=== PATIENT | male | born 1955 | race Hispanic/Latino ===

== ENCOUNTER → 2020-06-16 10:13 | Outpatient (CLI) | payer OTHER, SELFPAY ==
--- NOTE | ~2020-06-16 | XR_ITS ---
EXAMINATION: XR chest 2V EXAM DATE: 06/16/2020 10:33 INDICATION: R09.89 - Other specified symptoms and signs involving the ci. TECHNIQUE: Frontal and lateral projections of the chest obtained and reviewed. Comparison is made to prior examination from 02/19/2007. FINDINGS: The lungs are clear. There are no pleural effusions. The cardiomediastinal silhouette is within normal limits. There is no pneumothorax suspected. The bones and soft tissues are unremarkab le. IMPRESSION: No acute cardiopulmonary findings. Reviewed, dictated and finalized at location B. LEADER/CONTROL ROOM OPERATOR
== END ==
PROVIDERS: PCP Family Medicine; Visit Provider Family Medicine
DX: R09.89 Other specified symptoms and signs involving the circulatory and respiratory systems (principal)
CPT/HCPCS: 71046

== ENCOUNTER → 2021-07-12 09:21 | Outpatient (CLI) | payer OTHER, SELFPAY ==
--- NOTE | ~2021-07-12 | XR_ITS ---
XR chest 2V DATE: 07/12/2021 09:37 INDICATION: Smoker. Other specified symptoms and signs involving the ci TECHNIQUE: 2 views COMPARISON: June 16, 2020 2 view chest FINDINGS: Normal heart size. Mild aortic unfolding. No hilar or mediastinal enlargement. There is mild atelectasis at the left lung base. The lungs are otherwise clear. No pleural effusion o r pulmonary vascular congestion or pneumothorax. 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
== END ==
PROVIDERS: PCP Family Medicine; Visit Provider Family Medicine
DX: R09.89 Other specified symptoms and signs involving the circulatory and respiratory systems (principal); J98.11 Atelectasis
CPT/HCPCS: 71046

== ENCOUNTER 2021-08-01 00:40 | Day surgery (SDC) | payer OTHER, SELFPAY ==
[2021-07-24 10:59] VITALS: BMI 28.8
--- NOTE | 2021-07-31 17:31 | WPDGICN ---
Assessment and Plan Assessment and plan (1) Epigastric abdominal pain: Code(s): R10.13 - Epigastric pain Status: Acute Assessment and Plan: EGD with possible biopsy or dilatation or cautery. (2) Screen for colon cancer: Code(s): Z12.11 - Encounter for screening for malignant neoplasm of colon Status: Acute Assessment and Plan: Colonoscopy with possible biopsy or polypectomy or cautery or injection of substances. GI Consult Note Consult date/time: 07/31/21 17:31 HPI: Fazal Ruiz is a 65 year old male who has been losing weight. he knows that he is overweight but he has not been attempting to lose weight at this time He also has epigastric pain. pain is constant has been present for few months. He does use anti-inflammatory medications such as ibuprofen and Aleve quite regularly because of his sore back. As far as he knows he has not had an ulcer in the past. He is due for colon cancer screening. If he strains having a bowel movement he may see some red blood Review of Systems Review of Systems: All systems reviewed & are unremarkable except as noted in HPI and below PMFSH Past Medical History Medical History Abnormal lung sounds BMI 28.0-28.9,adult BMI greater than 30 Chronic GERD Dermatitis Epigastric abdominal pain Essential hypertension, benign History of peptic ulcer Iron deficiency anemia Other hyperlipidemia Respiratory crackles at both lung bases Screen for colon cancer Screen for colon cancer Tobacco abuse Type 2 diabetes mellitus Vitamin D deficiency, unspecified Surgical History Surgical History (Updated 08/01/21 @ 12:03 by Pedro Lee MD) History of carpal tunnel surgery History of cholecystectomy Social History Social History Smoking packs per day: 0.5 Smoking cigarettes per day: 10.0 Years smoked: 30 Smoking pack-years: 15.00 Smoking status: Current every day smoker Tobacco type: cigarettes Alcohol intake: never Substance use: never Substance use type: does not use Living arrangements: with family Spiritual care concerns: No Meds Home Medications and Allergies Home Medications Medication Instructions Recorded Confirmed Type hydrocortisone acetate 25 mg 25 mg RECTAL BID #12 ea 02/07/21 07/24/21 Rx rectal suppository ferrous sulfate 325 mg (65 mg 325 mg PO DAILY 03/08/21 07/24/21 History iron) tablet dapagliflozin 10 mg tablet See Rx Instructions .ROUTE 03/12/21 07/24/21 Rx .COMPLEX #90 tablet metformin 500 mg tablet,extended See Rx Instructions .ROUTE 04/08/21 07/24/21 Rx release 24 hr .COMPLEX #120 tablet metoprolol tartrate 100 mg tablet 100 mg PO BID #180 tablet 05/16/21 07/24/21 Rx rosuvastatin 40 mg tablet 40 mg PO DAILY #30 tablet 07/02/21 07/24/21 Rx blood sugar diagnostic #100 each 07/12/21 07/12/21 Rx omeprazole 40 mg capsule,delayed 40 mg PO DAILY #90 cap 07/12/21 07/24/21 Rx release Allergies Allergy/AdvReac Type Severity Reaction Status Date / Time No Known Allergies Allergy Unknown Verified 08/01/21 10:57 Exam Const: General: alert Orientation/consciousness: patient oriented x3 Resp: Auscultation: clear to auscultation bilaterally Cardio: Rhythm: regular rhythm GI: GI Palp: Yes Soft to palpation and No Tenderness to palpation present (GI) Neuro: General: patient oriented x3
[2021-08-01 10:58] VITALS: BMI 27.8
[2021-08-01 11:01] VITALS: BP 147/94; PULSE 70; RESP 20; TEMP 36.2; O2SAT 99
[2021-08-01] MEDS: LACTATED RINGERS 1,000 ML 150 ML IV CONT (11:11)
[2021-08-01 11:13] LABS: Glucose Point of Care 151 mg/dl (65-105)
--- NOTE | 2021-08-01 11:59 | WPDANESEPPF ---
Anes - Initial Pre Proc Eval Procedure: Operation Date: 08/01/21 12:30 Proposed Procedures p Esophagogastroduodenoscopy & Colonoscopy - Jonah Preciado MD Date/Time: 08/01/21 11:59 Surgeon: Jonah Preciado MD Pre Op Diagnosis: epigastric pain, GERD, weight loss Patient Data Age: 65 Gender: M Height: 1.78 m Weight: 88.1 kg Last Vital Signs Temp 36.2 C L 08/01/21 11:01 Pulse 70 08/01/21 11:01 Resp 20 08/01/21 11:01 BP 147/94 H 08/01/21 11:01 Pulse Ox 99 08/01/21 11:01 Allergies Allergy/AdvReac Type Severity Reaction Status Date / Time No Known Allergies Allergy Unknown Verified 08/01/21 10:57 Home Medications Medication Instructions Recorded Confirmed Type hydrocortisone acetate 25 mg 25 mg RECTAL BID #12 ea 02/07/21 07/24/21 Rx rectal suppository ferrous sulfate 325 mg (65 mg 325 mg PO DAILY 03/08/21 07/24/21 History iron) tablet dapagliflozin 10 mg tablet See Rx Instructions .ROUTE 03/12/21 07/24/21 Rx .COMPLEX #90 tablet metformin 500 mg tablet,extended See Rx Instructions .ROUTE 04/08/21 07/24/21 Rx release 24 hr .COMPLEX #120 tablet metoprolol tartrate 100 mg tablet 100 mg PO BID #180 tablet 05/16/21 07/24/21 Rx rosuvastatin 40 mg tablet 40 mg PO DAILY #30 tablet 07/02/21 07/24/21 Rx blood sugar diagnostic #100 each 07/12/21 07/12/21 Rx omeprazole 40 mg capsule,delayed 40 mg PO DAILY #90 cap 07/12/21 07/24/21 Rx release Laboratory Tests 08/01/21 11:08 POC Capillary Glucose 151 mg/dl H mg/dl (65-105) Patient hx anesthesia problems: none Family hx anesthesia problems: none Results Review: All pre-operative results and documents have been reviewed as part of the pre-operative evaluation. [facility] Past Medical History Medical History Abnormal lung sounds BMI 28.0-28.9,adult BMI greater than 30 Chronic GERD Dermatitis Epigastric abdominal pain Essential hypertension, benign History of peptic ulcer Iron deficiency anemia Other hyperlipidemia Respiratory crackles at both lung bases Screen for colon cancer Screen for colon cancer Tobacco abuse Type 2 diabetes mellitus Vitamin D deficiency, unspecified Surgical History Surgical History (Updated 08/01/21 @ 12:03 by Pedro Lee MD) History of carpal tunnel surgery History of cholecystectomy Social History Social History Smoking packs per day: 0.5 Smoking cigarettes per day: 10.0 Years smoked: 30 Smoking pack-years: 15.00 Smoking status: Current every day smoker Tobacco type: cigarettes Alcohol intake: never Substance use: never Substance use type: does not use Living arrangements: with family Spiritual care concerns: No Anes - Eval Final PreProcedure Day of Procedure 08/01/21 11:59 Patient weight: overweight Heart: regular rate and rhythm Lungs: clear to auscultation Airway: Mallampati scale class II Neurological: alert and oriented Last oral intake: >/= 8 hours ASA classification: III Emergent: no Anesthetic plan: proceed Anesthesia type and monitoring: general GIVS and standard monitoring Results Review: All pre-operative results and documents have been reviewed as part of the pre-operative evaluation. Informed Consent: The patient's anesthetic plan and its attendant risks and benefits were discussed with the patient/family/POA. Questions were solicited and answers provided to the satisfaction of the patient/family/POA.
--- NOTE | 2021-08-01 12:18 | SUR.OPER ---
EGD ENDED 1211, COLONOSCOPY STARTED 1220
[2021-08-01] MEDS: SIMETHICONE ORAL SUSPENSION 20 MG/0.3 ML 30 ML BOTTLE 0.6 ML IRRIGATION (12:25)
[2021-08-01 12:30] VITALS: BP 95/63; PULSE 63; RESP 17; O2SAT 95
[2021-08-01 12:40] VITALS: BP 115/74; PULSE 66; RESP 20; O2SAT 96
[2021-08-01 12:50] VITALS: BP 141/91; PULSE 64; RESP 20; O2SAT 99
== END 2021-08-01 13:16 | disposition home or self-care (01) ==
PROVIDERS: PCP Family Medicine; Visit Provider Internal Medicine Gastroenterology
PROC: 0DJ08ZZ Inspection of Upper Intestinal Tract, Via Natural or Artificial Opening Endoscopic (ICD-10-PCS; CPT 43235; principal; 2021-08-01 12:30)
DX: Z12.11 Encounter for screening for malignant neoplasm of colon (principal); K64.8 Other hemorrhoids; K57.30 Diverticulosis of large intestine without perforation or abscess without bleeding; K21.9 Gastro-esophageal reflux disease without esophagitis; K29.70 Gastritis, unspecified, without bleeding; R63.4 Abnormal weight loss; I10 Essential (primary) hypertension; E78.49 Other hyperlipidemia; E11.9 Type 2 diabetes mellitus without complications; E55.9 Vitamin D deficiency, unspecified; D50.9 Iron deficiency anemia, unspecified; Z87.11 Personal history of peptic ulcer disease; F17.210 Nicotine dependence, cigarettes, uncomplicated; Z79.84 Long term (current) use of oral hypoglycemic drugs
CPT/HCPCS: 45378; 43239; 82948; 87081; J2704; J7120

== ENCOUNTER 2024-10-02 11:29 | Outpatient (CLI) | payer OTHER, SELFPAY ==
--- NOTE | ~2024-10-02 | XR_ITS ---
XR knee RT min 4V 10/02/2024 11:44 Indication: Right knee pain Procedure: 4 views right knee Comparison: No prior studies for comparison. Findings: There is mild patellofemoral compartment osteoarthritis. There is joint space narrowing of the medial compartment. No fracture or traumatic malalignment is identified. No joint effusion. Impression: 1: Mild polyarticular osteoarthritis of the right knee. Reviewed, dictated and finalized at location A. Impression: 1: Mild polyarticular osteoarthritis of the right knee.
== END 2024-10-02 11:30 | disposition home or self-care (01) ==
LOC: MICIMG 11:30
PROVIDERS: PCP Family Medicine; Visit Provider Family Medicine
DX: M17.11 Unilateral primary osteoarthritis, right knee (principal)
CPT/HCPCS: 73564

== ENCOUNTER 2025-04-21 14:13 | Outpatient (CLI) | payer OTHER, SELFPAY ==
--- NOTE | ~2025-04-21 | XR_ITS ---
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 Findings: No acute fracture or malalignment. No significant degenerative changes. Soft tissues unremarkable. Impression: No acute fracture or malalignment. Reviewed, dictated and finalized at location P. PHONE WORKER Impression: No acute fracture or malalignment.
== END 2025-04-21 14:14 | disposition home or self-care (01) ==
LOC: GOSHIMG 14:14
PROVIDERS: PCP Family Medicine; Visit Provider Nurse Practitioner Family
DX: M25.531 Pain in right wrist (principal)
CPT/HCPCS: 73110